=== PATIENT | male | born 1985 | race Caucasian/White ===

== ENCOUNTER → 2019-02-22 | Outpatient (CLI) | payer BC ==
[2019-02-22 08:59] LABS: Basophils # (A) 0.1 k/uL (0-0.2); Basophils % (A) 2 %; Eosinophils # (A) 0.1 k/uL (0-0.7); Eosinophils % (A) 2 %; HCT 44.4 % (39.0-53.0); HGB 15.1 gm/dL (13.0-17.5); Lymphocytes # (A) 1.5 k/uL (1.0-4.8); Lymphocytes % (A) 25 %; MCH 29.6 pg (25.0-35.0); MCV 87.1 fL (80.0-100.0); Mean Platelet Volume 7.2; Monocytes # (A) 0.4 k/uL (0-1.0); Monocytes % (A) 7 %; Neutrophils # (A) 3.8 k/uL (1.3-7.7); Neutrophils % (A) 63 %; Platelet Count 273 k/uL (150-450); WBC 6.1 k/uL (3.8-10.6)
[2019-02-22 09:07] LABS: Partial Thromboplastin Time 27.2 sec (22.0-30.0); Prothrombin Time 10.3 sec (9.0-12.0)
[2019-02-22 16:10] LABS: ALT 25 U/L (10-49); AST 21 U/L (14-35); Calcium 9.6 mg/dL (8.7-10.3); Chol/HDL Ratio 4.05; Cholesterol 166 mg/dL (0-200); Creatine Kinase 87 U/L (35-257); Phosphorus 3.6 mg/dL (2.4-5.1); Rheumatoid Factor, Qnt <4 IU/mL (0-15)
[2019-02-22 16:14] LABS: Protein, Total 6.8 g/dL (6.2-8.2)
[2019-02-22 16:25] LABS: Anti-DNA, DS unit <1.0 IU/mL; Anti-Smith Ab Interp NEGATIVE (NEGATIVE); Cardiolipin Ab IgG Interp NEGATIVE (NEGATIVE); Cardiolipin Ab IgM Interp NEGATIVE (NEGATIVE); Cardiolipin IgA Antibody <0.5 U/mL; Cardiolipin IgM Antibody 0.2 U/mL; Centromere Antibody <0.2 AI; Centromere Antibody Interp NEGATIVE (NEGATIVE); Cyclic Citrull Pep IgG Unit <0.5 U/mL; Cyclic Citrullinated Pep IgG NEGATIVE (NEGATIVE); DNA Double-Stranded NEGATIVE (NEGATIVE); Scleroderma SC-70 Ab <0.2 AI
[2019-02-22 17:00] LABS: Hepatitis B Core IgM Non-Reactive (Non-Reactive); Hepatitis B Surface AB- Quant 3.5 mIU/mL; Hepatitis B Surface Antibody Non-Reactive (Non-Reactive); Hepatitis B Surface Antigen Non-Reactive (Non-Reactive); Hepatitis C IgG Antibody Non-Reactive (Non-Reactive)
[2019-02-23 11:33] LABS: Aldolase 2.3 U/L (1.2-7.6)
[2019-02-23 13:44] LABS: Albumin 4.02 g/dL (3.80-4.90); Gamma Globulin 0.82 g/dL (0.70-1.50)
[2019-02-23 14:12] LABS: APTT 45 Sec(s) (<43); APTT 1:1 Mix 41 Sec(s) (<43); DRVVT 1:1 Mix 40 Sec(s) (<44); Dilute Russell Viper Venom 44 Sec(s) (<44)
[2019-02-24 08:22] LABS: Myoglobin 56 ng/mL (28-72)
== END | disposition home or self-care (01) ==
LOC: LABWHC1 07:56
PROVIDERS: ATTEND Internal Medicine Rheumatology
DX: I73.00 Raynaud's syndrome without gangrene (principal); M25.50 Pain in unspecified joint
CPT/HCPCS: 36415; 80061; 82085; 82175; 82310; 82550; 82565; 82570; 83655; 83825; 83874; 84100; 84165; 84443; 84450; 84460; 84520; 85025; 85610; 85613; 85730; 86038; 86146; 86147; 86200; 86225; 86235; 86431; 86704; 86705; 86706; 86780; 86803; 87340

== ENCOUNTER → 2019-05-25 | Outpatient (CLI) | payer BC ==
--- NOTE | 2019-05-26 08:53 | XR ---
EXAM TYPE: LUMBAR SPINE X RAY SERIES COMPARISON: NONE HISTORY: Pain TECHNIQUE: 3 views are submitted. FINDINGS: Alignment is anatomic. The pedicles are intact. The transverse processes are intact. There is no s pondylolysis or spondylolisthesis. Slight scoliotic curvature of the spine. Hypertrophic changes inv olving the vertebral segments. IMPRESSION: 1. Scoliotic curvature with mild hypertrophic changes of the vertebral bodies..
--- NOTE | 2019-05-26 08:57 | XR ---
EXAMINATION TYPE: XR thoracic spine complete DATE OF EXAM: 05/25/2019 COMPARISON: NONE HISTORY: Pain Alignment is anatomic. There is no compression deformities. Vertebral body height and disc interspa kia are maintained. Scoliotic curvature of the spine. IMPRESSION: 1. Correlate for scoliosis. If symptoms persist or concern for disc pathology recommend MRI.
== END | disposition home or self-care (01) ==
LOC: RADXRMAIN 17:02
PROVIDERS: ATTEND Nurse Practitioner Family
DX: M41.84 Other forms of scoliosis, thoracic region (principal); M41.86 Other forms of scoliosis, lumbar region
CPT/HCPCS: 72072; 72100

== ENCOUNTER → 2019-07-18 | Outpatient (CLI) | payer BC ==
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
== END | disposition home or self-care (01) ==
LOC: SLEEP 15:57
PROVIDERS: ATTEND Internal Medicine Critical Care Medicine
DX: G47.10 Hypersomnia, unspecified (principal); F41.1 Generalized anxiety disorder; Z86.69 Personal history of other diseases of the nervous system and sense organs; Z87.898 Personal history of other specified conditions; Z86.59 Personal history of other mental and behavioral disorders; Z83.6 Family history of other diseases of the respiratory system; Z79.899 Other long term (current) drug therapy
CPT/HCPCS: 99211

== ENCOUNTER → 2020-02-21 | Outpatient (CLI) | payer BC | END | disposition home or self-care (01) | LOC: LABWHC1 11:21 | PROVIDERS: ATTEND Emergency Medicine | DX: Z20.828 Contact with and (suspected) exposure to other viral communicable diseases (principal) | CPT/HCPCS: U0003; C9803 ==

== ENCOUNTER → 2020-02-28 | Outpatient (CLI) | payer BC ==
--- NOTE | 2020-02-28 20:49 | CT ---
EXAMINATION TYPE: CT sinus wo con DATE OF EXAM: 02/28/2020 COMPARISON: None HISTORY: 31-year-old male R22.0 left maxillary sinus mass CT DLP: 468 mGycm Automated exposure control for dose reduction was used. TECHNIQUE: Noncontrast axial views of the paranasal sinuses were obtained. Coronal reconstructions pe rformed. FINDINGS: PARANASAL SINUSES: There is a small 1.8 cm round mass showing soft tissue attenuation situated within the floor of the l eft maxillary sinus. This seems to cause smooth bony remodeling. Trace mucosal thickening floor of the right maxillary sinus. The frontal, sphenoid, and ethmoid sinuses are clear. There is no air-fluid level. Reactive renny- osteogenesis is not seen. There is no destruction of the osseous schafer of the paranasal sinuses. THE NASAL CAVITY: The osteomeatal complexes are patent. The nasal septum is not deviated. There is some irregularity of the right nasal bone that could relat e to sequela of prior injury. The imaged brain and orbits are normal in appearance. Mastoid air cells and middle ear cavities are well pneumatized. Reformatted images confirm above findings. IMPRESSION: 1. A 1.8 cm round mass situated within the floor of the left maxillary sinus causes smooth bony remod eling suggesting a long-standing, indolent process, possible polyp or mucocele. Consider tissue sampl ing or follow-up. 2. Additional trace mucosal thickening floor right maxillary sinus.
== END | disposition home or self-care (01) ==
LOC: RADCTMAIN 18:12
PROVIDERS: ATTEND Otolaryngology
DX: J32.0 Chronic maxillary sinusitis (principal)
CPT/HCPCS: 70486

== ENCOUNTER → 2020-03-04 | Outpatient (CLI) | payer BC | END | disposition home or self-care (01) | LOC: LABWHC1 10:20 | PROVIDERS: ATTEND Emergency Medicine | DX: Z20.828 Contact with and (suspected) exposure to other viral communicable diseases (principal) | CPT/HCPCS: U0003; C9803 ==

== ENCOUNTER 2020-06-03 22:17 | Emergency (ER) | payer BC ==
[2020-06-03 22:26] VITALS: TEMP 97.8
[2020-06-03] MEDS ORDERED: SODIUM CHLORIDE 0.9% 1,000 ML IV STA (22:37)
--- NOTE | 2020-06-03 22:52 | ED ---
Chest Pain HPI - General Chief Complaint: Chest Pain Stated Complaint: Electrocuted Time Seen by Provider: 06/03/20 22:27 Source: patient, family, RN notes reviewed, old records reviewed Mode of arrival: ambulatory Limitations: no limitations - History of Present Illness Initial Comments: This is a 35-year-old male DF for evaluation patient Dese for evaluation regards to chest pain but mainly severe anxiety. Mild electrocution earlier today at work but denies any significant issues from that. Patient has otherwise no other complaints of shortness of breath, and anxiety and chest pain has increased throughout the day he has had a seizure issue before with prior anxiety attack, patient's main concern is electrocution why cause anxiety as he has limited with his happen to them. MD Complaint: chest pain -: hour(s) Onset: during rest, during exertion Pain Location: substernal Pain Radiation: none Severity: mild Severity scale (1-10): 3 Quality: aching Consistency: constant Improves With: nothing Worsens With: nothing Anginal Symptoms: sense of impending doom Other Symptoms: palpitations Treatments Prior to Arrival: none - Related Data Home Medications Medication Instructions Recorded Confirmed Escitalopram [Lexapro] 10 mg PO DAILY 06/03/20 06/03/20 Folic Acid 1 mg PO DAILY 06/03/20 06/03/20 Ibuprofen [Motrin Ib] 600 - 800 mg PO DAILY PRN 06/03/20 06/03/20 Allergies Allergy/AdvReac Type Severity Reaction Status Date / Time No Known Allergies Allergy Verified 06/03/20 23:22 Review of Systems ROS Statement: Those systems with pertinent positive or pertinent negative responses have been documented in the HPI. ROS Other: All systems not noted in ROS Statement are negative. EKG Findings - EKG Comments: EKG Findings:: EKG is sinus tachycardia 109 TX 132 QRS 86 QTc 439 Past Medical History Past Medical History: Asthma, Hyperlipidemia, Hypertension History of Any Multi-Drug Resistant Organisms: None Reported Past Surgical History: Hernia Repair Additional Past Surgical History / Comment(s): nasal, knee Past Psychological History: Anxiety Smoking Status: Former smoker Past Alcohol Use History: None Reported, Occasional Past Drug Use History: None Reported General Exam Limitations: no limitations General appearance: alert, in no apparent distress, anxious Head exam: Present: atraumatic, normocephalic, normal inspection Eye exam: Present: normal appearance, PERRL, EOMI. Absent: scleral icterus, conjunctival injection, periorbital swelling ENT exam: Present: normal exam, mucous membranes moist Neck exam: Present: normal inspection. Absent: tenderness, meningismus, lymphadenopathy Respiratory exam: Present: normal lung sounds bilaterally. Absent: respiratory distress, wheezes, rales, rhonchi, stridor Cardiovascular Exam: Present: regular rate, normal rhythm, normal heart sounds. Absent: systolic murmur, diastolic murmur, rubs, gallop, clicks GI/Abdominal exam: Present: soft, normal bowel sounds. Absent: distended, tenderness, guarding, rebound, rigid Extremities exam: Present: normal inspection, full ROM, normal capillary refill. Absent: tenderness, pedal edema, joint swelling, calf tenderness Back exam: Present: normal inspection Neurological exam: Present: alert, oriented X3, CN II-XII intact Psychiatric exam: Present: normal affect, normal mood Skin exam: Present: warm, dry, intact, normal color. 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 Patient feels better, denying anxiety medication currently. Patient can be discharged home Disposition Clinical Impression: Chest pain, Anxiety Disposition: HOME SELF-CARE Condition: Good Instructions (If sedation given, give patient instructions): Chest Pain (ED) Is patient prescribed a controlled substance at d/c from ED?: No Referrals: Jax Motley Jr, DO [Primary Care Provider] - 1-2 days
[2020-06-03 23:03] LABS: Basophils # (A) 0.1 k/uL (0-0.2); Basophils % (A) 1 %; Eosinophils # (A) 0.2 k/uL (0-0.7); Eosinophils % (A) 2 %; HCT 40.8 % (39.0-53.0); HGB 14.4 gm/dL (13.0-17.5); Lymphocytes # (A) 2.8 k/uL (1.0-4.8); Lymphocytes % (A) 25 %; MCH 29.7 pg (25.0-35.0); MCHC 35.2 g/dL (31.0-37.0); MCV 84.2 fL (80.0-100.0); Mean Platelet Volume 7.7; Monocytes # (A) 0.7 k/uL (0-1.0); Monocytes % (A) 6 %; Neutrophils # (A) 7.4 k/uL (1.3-7.7); Neutrophils % (A) 65 %; Platelet Count 315 k/uL (150-450); RBC 4.85 m/uL (4.30-5.90); RDW 12.6 % (11.5-15.5); WBC 11.4 k/uL (3.8-10.6)
[2020-06-03 23:06] LABS: ALT 24 U/L (4-49); AST 24 U/L (17-59); African American GFR (CKD) >90 (>60 ml/min/1.73 sqM); Albumin 4.4 g/dL (3.5-5.0); Alkaline Phosphatase 52 U/L (38-126); Anion Gap 9 mmol/L; Blood Urea Nitrogen 12 mg/dL (9-20); Calcium 9.3 mg/dL (8.4-10.2); Carbon Dioxide 25 mmol/L (22-30); Chloride 104 mmol/L (98-107); Creatine Kinase 149 U/L (55-170); Glucose 115 mg/dL (74-99); Magnesium 1.9 mg/dL (1.6-2.3); Non-African American GFR(CKD) >90 (>60 ml/min/1.73 sqM); Phosphorus 3.5 mg/dL (2.5-4.5); Potassium 3.8 mmol/L (3.5-5.1); Sodium 138 mmol/L (137-145); Total Bilirubin 0.4 mg/dL (0.2-1.3); Total Protein 7.4 g/dL (6.3-8.2)
--- NOTE | 2020-06-03 23:19 | XR ---
EXAMINATION TYPE: XR chest 2V DATE OF EXAM: 06/03/2020 COMPARISON: 05/15/2019 HISTORY: Weakness TECHNIQUE: FINDINGS: Heart and mediastinum are normal. Lungs are clear. Diaphragm is normal. Bony thorax appears normal. Pulmonary vascularity is normal. IMPRESSION: Normal chest. No change.
[2020-06-03 23:33] LABS: Creatine Kinase MB 0.5 ng/mL (0.0-2.4); Troponin I <0.012 ng/mL (0.000-0.034)
[2020-06-03 23:34] VITALS: RESP 16
[2020-06-03 23:50] VITALS: BP 150/93; PULSE 98
== END 2020-06-03 23:50 | disposition home or self-care (01) ==
LOC: EC 22:17
DX: F41.9 Anxiety disorder, unspecified (principal); R07.9 Chest pain, unspecified; R00.2 Palpitations; I10 Essential (primary) hypertension; Z79.899 Other long term (current) drug therapy; Z87.891 Personal history of nicotine dependence
CPT/HCPCS: 36415; 71046; 80053; 82550; 82553; 83735; 83880; 84100; 84484; 85025; 93005; 96360; 99285